=== PATIENT | male | born 1980 | race Caucasian/White ===

== ENCOUNTER 2020-05-21 13:26 | Inpatient (IN) ==
[2020-05-21] MEDS ORDERED: 0.9 % Sodium Chloride 1,000 ML IVC ONE ×2 (14:42→15:46)
[2020-05-21 14:43] LABS: Basophils # 0.1 K/mcL (0.0-0.2); Basophils % 1.2 %; Eosinophils # 0.1 K/mcL (0.0-0.6); Eosinophils % 1.4 %; Hematocrit 34.2 % (37.5-50.1); Hemoglobin 10.5 g/dL (12.9-16.9); Immature Granulocytes % 0.4 % (0-4); Lymphocytes # 1.9 K/mcL (0.6-4.6); Mean Corpuscular HGB Conc 30.7 g/dL (31.6-35.5); Mean Corpuscular Hemoglobin 23.7 pg (28.0-33.3); Mean Corpuscular Volume 77.2 fL (83.0-100.0); Mean Platelet Volume 10.3 fL (9.4-12.4); Monocytes # 0.5 K/mcL (0.0-1.3); Monocytes % 6.8 %; Neutrophils # 5.1 K/mcL (1.6-8.9); Platelet Count 162 K/mcL (140-400); Red Blood Count 4.43 M/mcL (4.19-5.50); Red Cell Distribution Width 20.4 % (11.5-14.5); Segmented Neutrophils % 66.2 %; White Blood Count 7.8 K/mcL (4.3-11.1)
[2020-05-21 14:50] LABS: INR 1.1; Prothrombin Time 12.6 Seconds (9.4-12.1)
[2020-05-21 14:51] LABS: Bilirubin,Urine Negative (Negative); Blood,Urine Small (Negative); Clarity,Urine Clear (Clear); Color,Urine Light-Orange (Yellow); Glucose,Urine (UA) Normal (Normal); Ketones,Urine 60 mg/dL (Negative); Leukocyte Esterase,Urine Negative (Negative); Mucus,Urine Few per lpf (None-Few); Nitrite,Urine Negative (Negative); Protein,Urine 100 mg/dL (Neg-Trace); RBC,Urine 0-3 per hpf (0-3); Squamous Epithelial Cell,Urine Few per hpf (None-Few); Urobilinogen,Urine Normal (Normal)
[2020-05-21 14:53] LABS: Activated Partial Thrombo Time 27.8 Seconds (26.0-36.0)
[2020-05-21 14:54] LABS: Amphetamine Screen,Urine Negative ng/mL (Cutoff=1000); Barbiturate Screen,Urine Negative ng/mL (Cutoff=200); Benzodiazepines Screen,Urine Negative ng/mL (Cutoff=200); Cannabinoid Screen,Urine Negative ng/mL (Cutoff = 50); Cocaine Screen,Urine Negative ng/mL (Cutoff= 300); Opiate Screen,Urine Negative ng/mL (Cutoff=300); Phencyclidine Screen,Urine Negative ng/mL (Cutoff=25)
[2020-05-21 14:55] LABS: Acetaminophen < 10 mcg/mL (10-20); Alanine Aminotransferase 27 Units/L (7-52); Albumin 4.2 g/dL (3.5-5.7); Albumin/Globulin Ratio 1.4 (1.1-2.2); Alkaline Phosphatase 112 Units/L (34-104); Aspartate Amino Transferase 57 Units/L (13-39); BUN/Creatinine Ratio 7 (6-26); Bilirubin,Total 1.1 mg/dL (0.3-1.0); Blood Urea Nitrogen 5 mg/dL (6-20); Calcium 8.7 mg/dL (8.6-10.3); Carbon Dioxide 24 mEq/L (23-29); Chloride 100 mEq/L (98-107); Ethanol 338 mg/dL (Less than 10); Glucose 116 mg/dL (70-105); Osmolality,Calculated 286 (280-300); Potassium 2.6 mEq/L (3.5-5.1); Salicylate < 2.5 mg/dL (15.0-30.0); Sodium 139 mEq/L (136-145); Total Protein 7.2 g/dL (6.4-8.9); Troponin I < 0.03 ng/mL (< 0.04); eGFR For African Americans > 60 (> 60); eGFR For Non-African Americans > 60 (> 60)
[2020-05-21] MEDS ORDERED: Thiamine (B-1) 100 MG in 0.9 % Sodium Chloride 50 ML IVPB ONE (15:08)
[2020-05-21] MEDS ORDERED: *HR* LORazepam 2 MG/ML VIAL IVP ONE ×2 (15:46→16:40)
[2020-05-21] MEDS ORDERED: Potassium Chloride 40 MEQ, Lidocaine 1% 2 ML in 0.9 % Sodium Chloride 500 ML IVPB ONE (16:16)
[2020-05-21] MEDS ORDERED: Naloxone 0.4 MG/ML INJ IVP PRN (17:03)
[2020-05-21] MEDS ORDERED: *HR* LORazepam 2 MG/ML VIAL IVP PRN ×2 (17:05)
[2020-05-21] MEDS: Hydrocortisone 10 MG TABLET PO SCH (19:04)
[2020-05-21] MEDS: *HR* LORazepam 2 MG/ML VIAL IVP PRN ×2 (19:05→22:05)
[2020-05-21] MEDS: 0.9 % Sodium Chloride w KCl 20 MEQ/1,000 ML MLS IVC SCH (19:05)
[2020-05-21] MEDS: *HR* Heparin 5,000 UNIT/ML VIAL SQ SCH (19:06)
[2020-05-21 23:23] LABS: Potassium 2.8 mEq/L (3.5-5.1)
[2020-05-21 23:24] LABS: Troponin I < 0.03 ng/mL (< 0.04)
[2020-05-22] MEDS: Ondansetron 4 MG/2 ML VIAL IVP PRN (05:49)
[2020-05-22] MEDS: *HR* Heparin 5,000 UNIT/ML VIAL SQ SCH ×2 (05:50→16:59)
[2020-05-22] MEDS: *HR* LORazepam 2 MG/ML VIAL IVP PRN (05:50)
[2020-05-22] MEDS: 0.9 % Sodium Chloride w KCl 20 MEQ/1,000 ML MLS IVC SCH (05:51)
[2020-05-22 06:40] LABS: Basophils # 0.1 K/mcL (0.0-0.2); Basophils % 1.1 %; Eosinophils # 0.2 K/mcL (0.0-0.6); Eosinophils % 2.2 %; Hematocrit 33.9 % (37.5-50.1); Hemoglobin 9.9 g/dL (12.9-16.9); Immature Granulocytes % 0.4 % (0-4); Lymphocytes # 1.3 K/mcL (0.6-4.6); Lymphocytes % 17.8 %; Mean Corpuscular HGB Conc 29.2 g/dL (31.6-35.5); Mean Corpuscular Hemoglobin 23.6 pg (28.0-33.3); Mean Corpuscular Volume 80.7 fL (83.0-100.0); Mean Platelet Volume 10.9 fL (9.4-12.4); Monocytes # 0.4 K/mcL (0.0-1.3); Monocytes % 5.7 %; Neutrophils # 5.4 K/mcL (1.6-8.9); Platelet Count 140 K/mcL (140-400); Red Cell Distribution Width 20.4 % (11.5-14.5); Segmented Neutrophils % 72.8 %; White Blood Count 7.4 K/mcL (4.3-11.1)
[2020-05-22 06:56] LABS: BUN/Creatinine Ratio 5 (6-26); Blood Urea Nitrogen 4 mg/dL (6-20); Calcium 8.5 mg/dL (8.6-10.3); Carbon Dioxide 25 mEq/L (23-29); Chloride 99 mEq/L (98-107); Glucose 87 mg/dL (70-105); Magnesium 1.5 mg/dL (1.6-2.6); Osmolality,Calculated 284 (280-300); Potassium 2.8 mEq/L (3.5-5.1); Sodium 139 mEq/L (136-145); eGFR For African Americans > 60 (> 60); eGFR For Non-African Americans > 60 (> 60)
[2020-05-22] MEDS ORDERED: Magnesium Sulfate 1 GM/102 ML PIGGYBACK IVPB ONE (07:18)
[2020-05-22] MEDS: Hydrocortisone 10 MG TABLET PO SCH ×2 (07:45→17:00)
[2020-05-22] MEDS: Thiamine (B-1) 100 MG TABLET PO SCH (07:45)
[2020-05-22] MEDS: Folic Acid 1 MG TABLET PO SCH (07:45)
[2020-05-22] MEDS: lisinopriL 5 MG TABLET PO SCH (11:48)
[2020-05-22 15:06] LABS: Magnesium 1.6 mg/dL (1.6-2.6); Potassium 2.9 mEq/L (3.5-5.1)
[2020-05-22] MEDS ORDERED: Perflutren Lipid Microsphere 1.3 ML in 0.9 % Sodium Chloride 8.7 ML IVP PRN (15:14)
[2020-05-22 23:25] LABS: Campylobacter by PCR Not detected (Not detect)
[2020-05-22 23:26] LABS: Adenovirus F 40/41 PCR Not detected (Not detect); Astrovirus PCR Not detected (Not detect); Cryptosporidium by PCR Not detected (Not detect); Cyclospora cayetanensis PCR Not detected (Not detect); E. coli O157 by PCR Not detected (Not detect); Entamoeba histolytica PCR Not detected (Not detect); Enteroaggregative E.coli(EAEC) Not detected (Not detect); Enteropathogenic E.coli(EPEC) Not detected (Not detect); Enterotoxigenic E.coli (ETEC) Not detected (Not detect); Giardia lamblia PCR Not detected (Not detect); Norovirus GI/GII PCR Not detected (Not detect); Plesiomonas shigelloides PCR Not detected (Not detect); Rotavirus A PCR Not detected (Not detect); Salmonella PCR Not detected (Not detect); Sapovirus PCR Not detected (Not detect); Shig/EnteroinvasiveE coli EIEC Not detected (Not detect); Shigalike tox-prod E coli STEC Not detected (Not detect); Vibrio PCR Not detected (Not detect); Vibrio cholerae PCR Not detected (Not detect); Yersinia enterocolitica PCR Not detected (Not detect)
[2020-05-22 23:28] LABS: C.difficile Toxin A/B Gene PCR DETECTED (Not detect)
[2020-05-23] MEDS: Ondansetron 4 MG/2 ML VIAL IVP PRN ×2 (00:10→21:00)
[2020-05-23] MEDS: Vancomycin Oral Soln 125 MG/2.5 ML UDC PO SCH ×5 (00:58→20:51)
[2020-05-23 03:10] LABS: Basophils % 0.9 %; Red Blood Count 3.59 M/mcL (4.19-5.50)
[2020-05-23 03:12] LABS: Eosinophils # 0.3 K/mcL (0.0-0.6); Eosinophils % 5.5 %; Hematocrit 28.5 % (37.5-50.1); Hemoglobin 8.4 g/dL (12.9-16.9); Immature Granulocytes % 0.2 % (0-4); Immature Platelets 6.6 % (1.1-6.1); Lymphocytes # 1.1 K/mcL (0.6-4.6); Lymphocytes % 23.8 %; Mean Corpuscular HGB Conc 29.5 g/dL (31.6-35.5); Mean Corpuscular Hemoglobin 23.4 pg (28.0-33.3); Mean Corpuscular Volume 79.4 fL (83.0-100.0); Mean Platelet Volume 10.8 fL (9.4-12.4); Monocytes # 0.3 K/mcL (0.0-1.3); Neutrophils # 2.8 K/mcL (1.6-8.9); Segmented Neutrophils % 62.6 %; White Blood Count 4.5 K/mcL (4.3-11.1)
[2020-05-23 03:30] LABS: BUN/Creatinine Ratio 3 (6-26); Blood Urea Nitrogen 2 mg/dL (6-20); Calcium 8.2 mg/dL (8.6-10.3); Carbon Dioxide 27 mEq/L (23-29); Chloride 103 mEq/L (98-107); Glucose 119 mg/dL (70-105); Osmolality,Calculated 281 (280-300); Sodium 137 mEq/L (136-145); eGFR For African Americans > 60 (> 60); eGFR For Non-African Americans > 60 (> 60)
[2020-05-23 03:54] LABS: Platelet Count 97 K/mcL (140-400)
[2020-05-23 03:55] LABS: Anisocytosis 1+ (Not Present); Hypochromasia Present (Not Present); Microcytosis Present (Not Present); Ovalocytes 1+ (Not Present)
[2020-05-23 03:56] LABS: Platelet Estimate Decreased (Normal)
[2020-05-23] MEDS: *HR* Heparin 5,000 UNIT/ML VIAL SQ SCH (06:03)
[2020-05-23] MEDS: Hydrocortisone 10 MG TABLET PO SCH ×2 (08:05→16:49)
[2020-05-23] MEDS: lisinopriL 5 MG TABLET PO SCH (08:05)
[2020-05-23] MEDS: Thiamine (B-1) 100 MG TABLET PO SCH (08:05)
[2020-05-23] MEDS: Folic Acid 1 MG TABLET PO SCH (08:06)
[2020-05-23 08:42] LABS: Hematocrit 33.2 % (37.5-50.1)
[2020-05-23 08:44] LABS: Hemoglobin 9.7 g/dL (12.9-16.9)
[2020-05-23] MEDS: Melatonin 3 MG TABLET PO PRN (20:51)
[2020-05-23] MEDS: *HR* LORazepam 2 MG/ML VIAL IVP PRN (20:59)
[2020-05-24 01:18] LABS: Hemoglobin 8.2 g/dL (12.9-16.9); Immature Granulocytes % 0.4 % (0-4); Lymphocytes % 19.8 %; Nucleated Red Blood Cells 0.4 /100 WBC (0)
[2020-05-24 01:20] LABS: Basophils % 0.6 %; Eosinophils # 0.3 K/mcL (0.0-0.6); Hematocrit 28.2 % (37.5-50.1); Mean Corpuscular HGB Conc 29.1 g/dL (31.6-35.5); Mean Corpuscular Volume 82.5 fL (83.0-100.0); Mean Platelet Volume 11.5 fL (9.4-12.4); Monocytes # 0.3 K/mcL (0.0-1.3); Monocytes % 6.8 %; Neutrophils # 3.4 K/mcL (1.6-8.9); Platelet Count 119 K/mcL (140-400); Red Blood Count 3.42 M/mcL (4.19-5.50); Segmented Neutrophils % 67.4 %
[2020-05-24 01:34] LABS: Platelet Estimate Normal (Normal)
[2020-05-24 01:35] LABS: Anisocytosis 1+ (Not Present); Hypochromasia Present (Not Present); Poikilocytosis 1+ (Not Present)
[2020-05-24 01:38] LABS: BUN/Creatinine Ratio 2 (6-26); Blood Urea Nitrogen 2 mg/dL (6-20); Calcium 8.7 mg/dL (8.6-10.3); Carbon Dioxide 27 mEq/L (23-29); Chloride 104 mEq/L (98-107); Glucose 132 mg/dL (70-105); Osmolality,Calculated 284 (280-300); Potassium 3.3 mEq/L (3.5-5.1); Sodium 138 mEq/L (136-145); eGFR For African Americans > 60 (> 60); eGFR For Non-African Americans > 60 (> 60)
[2020-05-24] MEDS: Thiamine (B-1) 100 MG TABLET PO SCH (08:05)
[2020-05-24] MEDS: Hydrocortisone 10 MG TABLET PO SCH ×2 (08:05→18:03)
[2020-05-24] MEDS: Vancomycin Oral Soln 125 MG/2.5 ML UDC PO SCH ×4 (08:05→20:25)
[2020-05-24] MEDS: Folic Acid 1 MG TABLET PO SCH (08:06)
[2020-05-24] MEDS: lisinopriL 5 MG TABLET PO SCH (08:06)
[2020-05-24 08:14] LABS: Hematocrit 27.9 % (37.5-50.1); Hemoglobin 8.1 g/dL (12.9-16.9)
[2020-05-24 13:02] LABS: % Iron Saturation 6 % (20-55); Iron 21 mcg/dL (65-175); Transferrin 240 mg/dL (203-362)
[2020-05-24 13:20] LABS: Ferritin 55 ng/mL (20-250)
[2020-05-24 13:31] LABS: Folate > 22.3 ng/mL (3.0-16.0); Vitamin B12 422 pg/mL (250-1100)
[2020-05-24 16:34] LABS: Hematocrit 29.5 % (37.5-50.1); Hemoglobin 8.7 g/dL (12.9-16.9)
[2020-05-24] MEDS: Melatonin 3 MG TABLET PO PRN (20:29)
[2020-05-25 08:08] LABS: Basophils % 0.9 %; Eosinophils # 0.2 K/mcL (0.0-0.6); Eosinophils % 4.9 %; Hematocrit 28.8 % (37.5-50.1); Hemoglobin 8.4 g/dL (12.9-16.9); Immature Granulocytes % 0.6 % (0-4); Lymphocytes % 27.1 %; Mean Corpuscular HGB Conc 29.2 g/dL (31.6-35.5); Mean Corpuscular Hemoglobin 24.2 pg (28.0-33.3); Monocytes # 0.4 K/mcL (0.0-1.3); Monocytes % 11.7 %; Neutrophils # 1.9 K/mcL (1.6-8.9); Platelet Count 121 K/mcL (140-400); Red Blood Count 3.47 M/mcL (4.19-5.50); Red Cell Distribution Width 21.2 % (11.5-14.5); Segmented Neutrophils % 54.8 %; White Blood Count 3.5 K/mcL (4.3-11.1)
[2020-05-25 08:27] LABS: BUN/Creatinine Ratio 3 (6-26); Blood Urea Nitrogen 2 mg/dL (6-20); Calcium 8.7 mg/dL (8.6-10.3); Carbon Dioxide 30 mEq/L (23-29); Chloride 105 mEq/L (98-107); Glucose 112 mg/dL (70-105); Magnesium 1.9 mg/dL (1.6-2.6); Osmolality,Calculated 287 (280-300); Potassium 3.3 mEq/L (3.5-5.1); Sodium 140 mEq/L (136-145); eGFR For African Americans > 60 (> 60); eGFR For Non-African Americans > 60 (> 60)
[2020-05-25] MEDS: Vancomycin Oral Soln 125 MG/2.5 ML UDC PO SCH ×2 (09:43→12:36)
[2020-05-25] MEDS: Folic Acid 1 MG TABLET PO SCH (09:43)
[2020-05-25] MEDS: Hydrocortisone 10 MG TABLET PO SCH (09:44)
[2020-05-25] MEDS: lisinopriL 5 MG TABLET PO SCH (09:44)
[2020-05-25] MEDS: Thiamine (B-1) 100 MG TABLET PO SCH (09:44)
[2020-05-25] MEDS ORDERED: lisinopriL 5 MG TABLET PO ONE (14:30)
[2020-05-25 14:40] LABS: Hematocrit 29.3 % (37.5-50.1); Hemoglobin 8.6 g/dL (12.9-16.9)
[2020-05-25 15:12] VITALS: BP 139/88
[2020-05-26] MEDS ORDERED: lisinopriL 10 MG TABLET PO SCH (09:00)
== END 2020-05-25 17:21 | disposition home or self-care (01) | DRG 897 ==
LOC: 3BNU 13:26 → EMEROOARM 13:26 → SUATTDRO 16:52 → 3BNU 18:07
PROVIDERS: ADMIT Internal Medicine; ATTEND Nurse Practitioner